=== PATIENT | female | born 2005 | race African-American/Black ===

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

== ENCOUNTER 2024-05-04 20:13 | Emergency (ER) | payer SELFPAY ==
[~2024-05-04] VITALS: Ht 160 cm; Wt 75.0 kg
[~2024-05-04 20:13] MED LIST changes: +ACET-66 PO; +MAG30ORA11 PO; -NO MEDS; +ONDA-104 PO
[2024-05-04 20:38] VITALS: BP 119/69; PULSE 104; RESP 16; TEMP 100.6; O2SAT 100
[2024-05-04 20:56] LABS: COVID AG,FIA SOURCE NASAL SWAB
[2024-05-04 21:18] LABS: RAPID GROUP A STREP NEGATIVE (NEGATIVE)
[2024-05-04 21:22] LABS: SARS-COV2 (COVID) ANTIGEN,FIA Negative (Negative)
[2024-05-04 21:23] LABS: INFLUENZA TYPE B NEGATIVE FOR TYPE B (NEGATIVE)
[2024-05-04 21:30] LABS: INFLUENZA TYPE A POSITIVE FOR TYPE A (NEGATIVE)
[2024-05-04] MEDS ORDERED: FLUT16SP NASAL (22:09)
[2024-05-04] MEDS ORDERED: OSEL75CA45 PO (22:10)
[2024-05-04] MEDS ORDERED: BENZ-227 PO (22:10)
[2024-05-04] MEDS ORDERED: ACET-3385 PO (22:11)
[2024-05-04] MEDS: ACETAMINOPHEN 500 MG TABLET PO ONE (22:26)
== END 2024-05-04 22:29 | disposition home or self-care (01) ==
LOC: EMS 20:13
DX: J10.1 Influenza due to other identified influenza virus with other respiratory manifestations (principal); Z20.822 Contact with and (suspected) exposure to COVID-19
CPT/HCPCS: 87430; 87804; 99283